=== PATIENT | male | born 1975 | race Two or more races ===

== ENCOUNTER 2021-09-26 20:46 | Emergency (ER) | payer SELFPAY ==
[2021-09-26 21:02] LABS: BASOPHIL 0.5 % (0-2); EOSINOPHIL 2.9 % (0-5); HCT 40.7 % (42.0-52.0); HGB 14.5 g/dl (13.2-18.0); LYMPHOCYTE 20.4 % (15-48); MCH 31.9 pg (25.0-31.0); MCHC 35.6 g/dL (32.0-36.0); MCV 89.6 fL (78.0-100.0); MONOCYTE 10.5 % (0-12); MPV 11.4 fL (6.0-9.5); NEUTROPHIL 65.4 % (41-80); NRBC 0; RBC 4.54 M/uL (4.70-6.00); WBC 3.8 K/uL (4.0-10.5)
[2021-09-26 21:28] LABS: PLT 41 K/uL (150-400)
[2021-09-26 21:33] LABS: ALBUMIN 2.8 g/dL (3.4-5.0); ALKALINE PHOSHATASE 83 U/L (46-116); ALT 74 U/L (16-63); AST 154 U/L (15-37); BUN 5 mg/dL (7-18); BUN/CREAT RATIO (CALC) 8.5 RATIO; C-REACTIVE PROTEIN < 0.20 mg/dL (<=0.90); CHLORIDE 101 mmol/L (98-107); CO2 (BICARBONATE) 23 mmol/L (21-32); CPK 1057 U/L (39-308); CREATININE 0.59 mg/dL (0.67-1.17); GLOBULIN (CALCULATION) 4.8 g/dL; GLUCOSE 161 mg/dL (74-106); POTASSIUM 3.2 mmol/L (3.5-5.1); TOTAL PROTEIN 7.6 g/dL (6.4-8.2)
[2021-09-26 22:16] LABS: BILIRUBIN 2+ mg/dL (NEGATIVE); BLOOD 1+ Ery/uL (NEGATIVE); CLARITY CLEAR (CLEAR); COLOR YELLOW (YELLOW); GLUCOSE (U) TRACE mg/dL (NORMAL); LEUKOCYTES NEGATIVE Leu/uL (NEGATIVE); NITRITE NEGATIVE (NEGATIVE); PROTEIN 3+ mg/dL (NEGATIVE); SPECIFIC GRAVITY 1.025 (1.001-1.030); UROBILINOGEN >=8.0 mg/dL (0.2-1.0)
[2021-09-26 22:22] LABS: AMPHETAMINES NEGATIVE (NEGATIVE); BARBITURATES NEGATIVE (NEGATIVE); ECSTASY (MDMA) NEGATIVE (NEGATIVE); MARIJUANA (THC) NEGATIVE (NEGATIVE); METHADONE NEGATIVE (NEGATIVE); OPIATES NEGATIVE (NEGATIVE); OXYCODONE NEGATIVE (NEGATIVE)
[2021-09-26 22:35] LABS: BACTERIA 1+
[2021-09-26 22:38] LABS: URINARY WBC RARE
== END 2021-09-26 23:25 | disposition home or self-care (01) ==
LOC: FER 20:46
PROVIDERS: Emergency Medicine Emergency Medical Services
DX: R56.9 Unspecified convulsions (principal); D69.6 Thrombocytopenia, unspecified; E87.6 Hypokalemia; F10.10 Alcohol abuse, uncomplicated; Z20.822 Contact with and (suspected) exposure to COVID-19
CPT/HCPCS: 36415; 70450; 71045; 80053; 80305; 81001; 82550; 84484; 85025; 86140; 93005; G0480; U0002